=== PATIENT | female | born 1980 | race Caucasian/White ===

== ENCOUNTER → 2017-02-26 | Outpatient (CLI) | payer MEDICAID ==
[~2017-02-26] MED LIST: ABILIFY10 MG; CLARITIN 10MG T10 MG OR; HYDROCODONE-APA1 TA1 PO; KEFLEX 500MG.500 MG PO; PANTOPRAZOLE SO40 MG PO; PNV-SELECT1 TAB PO; ZANTAC 150150 MG PO
--- NOTE | 2017-02-26 16:14 | RADIOLOGY REPORT PS360 ---
US PELVIS-TRANSVAGINAL ONLY HISTORY: PELVIC AND PERINEAL PAIN ORDERING PHYSICIAN: eDwey Wilkerson MD PATIENT AGE: 36 years COMPARISON: None FINDINGS: The uterus measures 8 x 4 x 5.4 cm. Combined endometrial thickness is 9 mm. There is however fluid present within the endometrial area measuring up to 0.5 cm in thickness and 1.2 cm in the left. The left ovary is 2.7 x 2.5 cm and contains a 1 cm cyst and other smaller follicles. The right ovary is 3.5 x 1.9 cm containing small follicles. Bilateral brain blood flow is present. There is trace amount fluid in the cul-de-sac. IMPRESSION: Fluid collection within the endometrium. The origin is indeterminate. A gestational sac is a consideration. Bilateral ovarian follicles with 1 cm left ovarian cyst and trace amount fluid in the cul-de-sac
--- NOTE | 2017-02-26 16:14 | RADIOLOGY REPORT PS360 ---
US PELVIS-TRANSVAGINAL ONLY HISTORY: PELVIC AND PERINEAL PAIN ORDERING PHYSICIAN: Dewey Wilkerson MD PATIENT AGE: 36 years COMPARISON: None FINDINGS: The uterus measures 8 x 4 x 5.4 cm. Combined endometrial thickness is 9 mm. There is however fluid present within the endometrial area measuring up to 0.5 cm in thickness and 1.2 cm in the left. The left ovary is 2.7 x 2.5 cm and contains a 1 cm cyst and other smaller follicles. The right ovary is 3.5 x 1.9 cm containing small follicles. Bilateral brain blood flow is present. There is trace amount fluid in the cul-de-sac. IMPRESSION: Fluid collection within the endometrium. The origin is indeterminate. A gestational sac is a consideration. Bilateral ovarian follicles with 1 cm left ovarian cyst and trace amount fluid in the cul-de-sac
== END ==
LOC: RAD 14:24 → LAB 14:24 → RAD 14:30
DX: R10.2 Pelvic and perineal pain (principal); N94.89 Other specified conditions associated with female genital organs and menstrual cycle